=== PATIENT | male | born 1990 | race Hispanic/Latino ===

== ENCOUNTER 2018-11-15 02:02 | Inpatient (IN) | payer BC, OTHER ==
[~2018-11-15] VITALS: Ht 185.4 cm; Wt 92.4 kg
[2018-11-15] MEDS ORDERED: ACETAMINOPHEN 325 MG TAB ONE (03:27)
[2018-11-15] MEDS ORDERED: SODIUM CHLORIDE 0.9% 1000ML 1,000 ML IV ONE (03:27)
[2018-11-15 03:36] LABS: APPEARANCE,URINE Clear (CLEAR); BILIRUBIN,URINE Negative (NEGATIVE); COLOR,URINE Yellow (YELLOW); GLUCOSE, URINE (UA) Negative (NEGATIVE); KETONES,URINE Negative (NEGATIVE); LEUKOCYTE ESTERASE ,URINE Moderate (NEGATIVE); NITRATE,URINE Negative (NEGATIVE); OCCULT BLOOD,URINE Nonhemolyzed Trace (NEGATIVE); PH,URINE 6.5 (5.0-8.0); PROTEIN,URINE Negative (NEGATIVE)
[2018-11-15 03:55] LABS: BACTERIA,URINE Few /HPF (None Seen)
[2018-11-15] MEDS ORDERED: LORAZEPAM 2 MG/ML 1 ML VIAL ONE (04:01)
[2018-11-15] MEDS ORDERED: IBUPROFEN 400 MG TABLET ONE (04:02)
[2018-11-15] MEDS ORDERED: ONDANSETRON HCL 4 MG/2 ML VIAL ONE (04:02)
[2018-11-15 04:05] LABS: BASOPHILS % (AUTO) 0.3 % (0.0-5.0); EOSINOPHILS % (AUTO) 0.2 % (0.0-8.0); HEMATOCRIT 48.8 % (42-54); LYMPHOCYTES % (AUTO) 4.7 % (21.0-51.0); MEAN CORPUSCULAR HEMOGLOBIN 28.3 pg (27.0-33.0); MEAN CORPUSCULAR HGB CONC 33.5 g/dL (32.0-36.0); MEAN CORPUSCULAR VOLUME 84.3 fL (79-99); MONOCYTES % (AUTO) 5.4 % (3.0-13.0); NEUTROPHILS % (AUTO) 89.4 % (40.0-77.0); PLATELET COUNT (AUTO) 204 K/uL (130-400); RED BLOOD CELL COUNT(AUTO) 5.79 MIL/uL (4.50-6.20); RED CELL DISTRIBUTION WIDTH 13.3 % (11.0-15.5)
[2018-11-15 04:12] LABS: CREATININE 1.1 mg/dL (0.5-1.5); POTASSIUM 3.8 mmol/L (3.5-5.1)
[2018-11-15 04:18] LABS: ALBUMIN 4.1 g/dL (3.5-5.0); BILIRUBIN,DIRECT 0.1 mg/dL (0.0-0.3); BILIRUBIN,TOTAL 0.4 mg/dL (0.2-1.0); TOTAL PROTEIN, SERUM 8.1 g/dL (6.0-8.3)
[2018-11-15 04:54] LABS: AMPHET/METH SCREEN,URINE NEGATIVE (NEGATIVE); BARBITURATE SCREEN, URINE NEGATIVE (NEGATIVE); BENZODIAZEPINES SCREEN,URINE NEGATIVE (NEGATIVE); CANNABINOID SCREEN,URINE NEGATIVE (NEGATIVE); COCAINE SCREEN,URINE NEGATIVE (NEGATIVE); OPIATE SCREEN,URINE NEGATIVE (NEGATIVE); PHENCYCLIDINE SCREEN,URINE NEGATIVE (NEGATIVE)
[2018-11-15 05:48] LABS: CREATINE KINASE, TOTAL 177 U/L (21-232); MYOGLOBIN 63 ng/mL (10-92); TROPONIN I < 0.04 ng/mL (0.00-0.06)
[2018-11-15] MEDS ORDERED: SODIUM CHLORIDE 0.9% 50 ML IV ONE (06:03)
[2018-11-15] MEDS ORDERED: CEFTRIAXONE SODIUM 1 GM ONE (06:03)
[2018-11-15] MEDS ORDERED: ONDANSETRON HCL 4 MG/2 ML VIAL IVP PRN (08:15)
[2018-11-15] MEDS ORDERED: COMPOUND IV REFRIGERATED 1 EACH IVSOLN MISC PRN (08:15)
[2018-11-15 08:31] VITALS: BP 123/68
[2018-11-15] MEDS: PANTOPRAZOLE SODIUM 40 MG TABLET.DR PO SCH (08:55)
[2018-11-15] MEDS: SODIUM CHLORIDE 0.9% 1000ML 1,000 ML IV SCH ×2 (08:55→14:40)
[2018-11-15] MEDS: ENOXAPARIN SODIUM 40 MG/0.4 ML SYRINGE SQ SCH (08:56)
[2018-11-15] MEDS: OSELTAMIVIR PHOSPHATE 75 MG CAP PO SCH ×2 (10:53→21:17)
[2018-11-15] MEDS: AZITHROMYCIN 250 MG in SODIUM CHLORIDE 0.9% 250 ML IV SCH (11:09)
[2018-11-15 11:39] VITALS: BP 119/69
[2018-11-15 13:56] LABS: TROPONIN I 0.34 ng/mL (0.00-0.06)
[2018-11-15 16:32] VITALS: BP 128/69
[2018-11-15 20:16] VITALS: BP 134/76
[2018-11-15] MEDS: CEFTRIAXONE SODIUM 1 GM IVP SCH (21:17)
[2018-11-15 21:49] LABS: TROPONIN I 0.23 ng/mL (0.00-0.06)
[2018-11-15 23:29] VITALS: BP 120/75
[2018-11-16 03:59] VITALS: BP 132/79
[2018-11-16] MEDS: SODIUM CHLORIDE 0.9% 1000ML 1,000 ML IV SCH ×3 (04:13→17:10)
--- NOTE | 2018-11-16 04:18 | NUR ---
Assessment Patient alert and oriented, reports non productive cough. Afebrile. Tolerating IV antibiotics well. Denies N/v/d. IV site CDI. States he feels weak. Has excellent appetite. Ate dinner and asked for two sandwiches.
[2018-11-16 07:28] LABS: HEMATOCRIT 43.8 % (42-54); MEAN CORPUSCULAR HEMOGLOBIN 29.4 pg (27.0-33.0); MEAN CORPUSCULAR HGB CONC 34.8 g/dL (32.0-36.0); MEAN CORPUSCULAR VOLUME 84.7 fL (79-99); PLATELET COUNT (AUTO) 180 K/uL (130-400); RED BLOOD CELL COUNT(AUTO) 5.17 MIL/uL (4.50-6.20); RED CELL DISTRIBUTION WIDTH 13.3 % (11.0-15.5); WHITE BLOOD COUNT (AUTO) 9.5 K/uL (4.8-10.8)
[2018-11-16 07:34] VITALS: BP 128/65
[2018-11-16 08:13] LABS: MAGNESIUM 1.8 mg/dL (1.80-2.40); PHOSPHORUS 3.5 mg/dL (2.5-4.9); POTASSIUM 4.1 mmol/L (3.5-5.1)
[2018-11-16 08:17] LABS: HEMOGLOBIN A1C 6.1 % (4.0-6.0)
[2018-11-16] MEDS: AZITHROMYCIN 250 MG in SODIUM CHLORIDE 0.9% 250 ML IV SCH (09:31)
[2018-11-16] MEDS: ENOXAPARIN SODIUM 40 MG/0.4 ML SYRINGE SQ SCH (09:32)
[2018-11-16] MEDS: OSELTAMIVIR PHOSPHATE 75 MG CAP PO SCH ×2 (09:32→20:20)
[2018-11-16] MEDS: PANTOPRAZOLE SODIUM 40 MG TABLET.DR PO SCH (09:32)
[2018-11-16] MEDS: CEFTRIAXONE SODIUM 1 GM IVP SCH ×2 (09:32→20:20)
[2018-11-16 11:54] VITALS: BP 124/70
[2018-11-16 17:13] VITALS: BP 149/88
--- NOTE | 2018-11-16 17:29 | NUR ---
DC Plan Discussed dcp with patient and mom at bedside. Patient independently performs ADLs. Lives with mom and 21 y/o brother. States feels safe returning home to same setting. DCP is to home w/ family. CD Addendum: 11/16/18 at 1730 by GEOVANI JUAREZ CM Amended: Links added.
[2018-11-16 19:19] VITALS: BP 129/75
[2018-11-16 23:29] VITALS: BP 163/83
--- NOTE | 2018-11-17 03:50 | NUR ---
Patient alert and oriented. IV fluids running at 150ml/hr. Tolerating IV antibiotics well. No complaints of n/v/d during the night. Patient did c/o of anxiousness due to hospitalization and cough. Educated patient on deep breathing and coughing. Verbalized understanding. Patient ambulated in room resulted in decrease in anxiety. Patient was handed pen and paper, drawing figures. Patient states he is no longer anxious.
[2018-11-17 03:57] LABS: HEMATOCRIT 42.6 % (42-54); MEAN CORPUSCULAR HEMOGLOBIN 28.4 pg (27.0-33.0); MEAN CORPUSCULAR HGB CONC 33.9 g/dL (32.0-36.0); MEAN CORPUSCULAR VOLUME 83.7 fL (79-99); NUCLEATED RED BLOOD CELLS 0.1 % (0.0-0.19); PLATELET COUNT (AUTO) 189 K/uL (130-400); RED BLOOD CELL COUNT(AUTO) 5.08 MIL/uL (4.50-6.20); RED CELL DISTRIBUTION WIDTH 13.4 % (11.0-15.5); WHITE BLOOD COUNT (AUTO) 6.7 K/uL (4.8-10.8)
[2018-11-17 04:20] LABS: POTASSIUM 3.8 mmol/L (3.5-5.1)
[2018-11-17 04:27] VITALS: BP 145/72
[2018-11-17 07:12] VITALS: BP 135/80
[2018-11-17 07:28] LABS: TROPONIN I 0.09 ng/mL (0.00-0.06)
--- NOTE | 2018-11-17 07:30 | NUR ---
AM ASSESSMENT PT LAYING IN BED, HOB ELEVATED 30 DEGREES, WATCHING TV. PT'S MOTHER @ BEDSIDE. DROPLET ISOLATION MAINTAINED. A/O X 3. NO SOB. NO DISTRESS NOTED. DENIES CHEST PAIN OR DISCOMFORT. DENIES PALPITATIONS. TELE:SR 60s. DENIES N/A AND/OR DIARRHEA. UP AD LILI. INSTRUCTED TO CALL FOR ASSISTANCE. CALL [facility] W/IN REACH.
[2018-11-17] MEDS ORDERED: METOPROLOL TARTRATE 25 MG TAB PO SCH (09:00)
[2018-11-17] MEDS: PANTOPRAZOLE SODIUM 40 MG TABLET.DR PO SCH (09:22)
[2018-11-17] MEDS: OSELTAMIVIR PHOSPHATE 75 MG CAP PO SCH (09:22)
[2018-11-17] MEDS: CEFTRIAXONE SODIUM 1 GM IVP SCH (09:22)
[2018-11-17] MEDS: AZITHROMYCIN 250 MG in SODIUM CHLORIDE 0.9% 250 ML IV SCH (09:22)
[2018-11-17] MEDS: ENOXAPARIN SODIUM 40 MG/0.4 ML SYRINGE SQ SCH (09:23)
[2018-11-17 10:57] VITALS: BP 138/82
[2018-11-17] MEDS ORDERED: SULF1TAB42 PO (13:08)
--- NOTE | 2018-11-17 14:00 | NUR ---
DISCHARGE VERBAL & WRITTEN DISCHARGE INSTRUCTIONS REVIEWED & GIVEN TO PT & PT'S MOTHER. QUESTIONS ENCOURAGED & CLARIFIED. PROPER CARE & PREVENTION FOR UTI REVIEWED. NEW PRESCRIBED MEDICATION REVIEWED. PT & PT'S MOTHER INFORMED PRESCRIPTION CALLED IN TO PHARMACY IN FILE. IV X 2 DISCONTINUED. TELE YAEL REMOVED. PT & PT"S MOTHER TO GATHER PERSONAL BELONGINGS. WILL NOTIFY STAFF WHEN READY TO BE TAKEN TO PRIVATE VEHICLE.
--- NOTE | 2018-11-17 14:15 | NUR ---
DISCHARGE PT TAKEN TO PRIVATE VEHICLE BY A [facility] PCP VIA WC. NO DISTRESS NOTED.
== END 2018-11-17 14:20 | disposition home or self-care (01) | DRG 871 ==
LOC: EDH 02:02 → EDHIP 02:03 → 2AH 08:08
PROVIDERS: ADMIT Internal Medicine; ATTEND Internal Medicine
DX: A41.9 Sepsis, unspecified organism (principal); J12.9 Viral pneumonia, unspecified; N39.0 Urinary tract infection, site not specified; R31.0 Gross hematuria; R73.03 Prediabetes; F02.80 Dementia in other diseases classified elsewhere, unspecified severity, without behavioral disturbance, psychotic disturbance, mood disturbance, and anxiety; G30.9 Alzheimer's disease, unspecified; B96.20 Unspecified Escherichia coli [E. coli] as the cause of diseases classified elsewhere; Z23 Encounter for immunization
CPT/HCPCS: 36415; 71046; 76770; 80048; 80076; 80305; 81001; 82550; 83036; 83605; 83735; 83874; 84100; 84484; 85025; 85027; 87040; 87077; 87088; 87186; 87804; 93005; 99291; A4218; G0378; J0456; J0696; J1650; J2060; J2405; J7030